=== PATIENT | female | born 1995 | race Hispanic/Latino ===

== ENCOUNTER 2020-03-03 13:47 | Emergency (ER) | payer OTHER ==
[2020-03-04 15:38] LABS: SARS-CoV-2 MS2 Positive; SARS-CoV-2 N Gene Negative; SARS-CoV-2 S Gene Negative; SARS-CoV-2 orf1ab Negative
== END 2020-03-03 14:43 | disposition home or self-care (01) ==
LOC: ERS 13:47
DX: Z20.828 Contact with and (suspected) exposure to other viral communicable diseases (principal)
CPT/HCPCS: 87635; 99283; U0003

== ENCOUNTER 2020-06-08 04:17 | Emergency (ER) | payer OTHER ==
[2020-06-08 05:02] LABS: Pregnancy Test - Urine (BHCG) Negative (Negative); Pregu Control Background? CLEAR/WHITE (CLR/WHITE); Pregu Control Bar Appear? YES (CONTROL BAR); Specific Gravity 1.015 (1.002-1.036)
[2020-06-08] MEDS ORDERED: Ondansetron PF 4 MG/2 ML Vial ONE (05:02)
[2020-06-08] MEDS ORDERED: Morphine 4 MG/ML VIAL ONE (05:02)
[2020-06-08 05:03] LABS: Bacteria/HPF None Seen HPF (None Seen); Bilirubin Negative (Negative); Blood, Urine Trace (Negative); Clarity Clear (Clear); Glucose, Urine (Dipstick) Normal (Negative); Ketone, Urine Negative (Negative); Leukocyte 25 Leu/uL (Negative); Nitrite Negative (Negative); Protein, Urine (Dipstick) Negative (Neg-Trace); RBC/HPF 0-3 HPF (0-3); Specific Gravity, Urine 1.015 (1.002-1.036); Squamous Epithelial 0-3 HPF (0-3); Urobilinogen Normal mg/dL (Less than 2)
[2020-06-08 05:13] LABS: #Basophils 0.1 thou/uL (0.0-0.2); #Eosinphils 0.1 thou/uL (0.0-0.7); #Lymphocytes 3.7 thou/uL (1.20-3.40); #Monocytes 0.8 thou/uL (0.11-0.59); #Neutrophils 6.8 thou/uL (1.40-6.50); %Basophils 0.7 % (0.0-1.0); %Eosinophils 1.1 % (0.0-10.0); %Lymphocytes 32.5 % (21.0-51.0); %Monocytes 6.5 % (0.0-10.0); %Neutrophils 59.2 % (42.0-75.0); Hemoglobin 12.8 g/dL (12.0-16.0); Mean Corpuscular HGB CONC 33.5 g/dL (32.0-36.0); Mean Corpuscular Hemoglobin 28.6 pg (27.0-31.0); Mean Corpuscular Volume 85.3 fL (78.0-98.0); Mean Platelet Volume 8.3 fL (7.4-10.4); Platelet Count 377 thou/uL (130-400); RBC Distribution Width 13.3 % (11.5-14.5); Red Blood Cell (RBC) Count 4.46 mill/uL (4.20-5.40); White Blood Cell (WBC) Count 11.5 thou/uL (4.8-10.8)
[2020-06-08 05:35] LABS: ALT (SGPT) 16 U/L (8-55); AST (SGOT) 19 U/L (5-34); Albumin 3.9 g/dL (3.5-5.0); Alkaline Phosphatase 57 U/L (40-110); Anion Gap 12 mmol/L (10-20); BUN (Urea Nitrogen) 12 mg/dL (7.0-18.7); Bilirubin, Total 0.2 mg/dL (0.2-1.2); Calc. Creatinine Clearance 0 mL/min (70-130); Calcium 8.9 mg/dL (7.8-10.44); Carbon Dioxide 21 mmol/L (22-29); Chloride 106 mmol/L (98-107); Estimated GFR-MDRD 89; Globulin 3.3 g/dL (2.4-3.5); Glucose 110 mg/dL (70-105); Lipase 24 U/L (8-78); Potassium 4.1 mmol/L (3.5-5.1); Protein, Total 7.2 g/dL (6.0-8.3); Sodium 135 mmol/L (136-145)
[2020-06-08] MEDS ORDERED: Ketorolac Tromethamine 30 MG/ML VIAL ONE (05:46)
[2020-06-08] MEDS ORDERED: Lidocaine Viscous Sol 2% 15 ml UD Cup ONE (06:27)
[2020-06-08] MEDS ORDERED: Mag-Al 1200 mg/1200 mg/30 ML UDCUP ONE (06:27)
--- NOTE | 2020-06-08 10:26 | CT ---
PRELIMINARY REPORT/[facility]/EMERGENCY AFTER HOURS PROCEDURE: EXAM: CT Abdomen and Pelvis with Intravenous Contrast CLINICAL HISTORY: Patient presents with several hours of epigastric and right upper quadrant pain. Sh zac has had nausea but no vomiting. She denies fever, change in bowel habits, and urinary symptoms. She reports no previous history of similar pain TECHNIQUE: Axial computed tomography images of the abdomen and pelvis with intravenous contrast. CONTRAST: With; ISOVUE 370, 90ML COMPARISON: None provided. FINDINGS: LUNG BASES: No basilar airspace consolidation or pleural effusion. LIVER: Unremarkable. GALLBLADDER AND BILE DUCTS: Unremarkable. No calcified stone. No ductal dilation. PANCREAS: Unremarkable. SPLEEN: Unremarkable. 2 small low density areas in the spleen of doubtful clinical significance. ADRENAL GLANDS: Unremarkable. KIDNEYS, URETERS, AND BLADDER: Unremarkable. No hydronephrosis or nephrolithiasis. No ureteral or nisha dder calculi. STOMACH AND BOWEL: No obstruction. No wall thickening. No CT evidence of colitis or acute diverticuli tis. APPENDIX: Normal appendix. PERITONEUM: No free fluid. No free air. LYMPH NODES: No lymphadenopathy. REPRODUCTIVE: 3.5 cm left ovarian cyst. VASCULATURE: No aortic aneurysm. BONES: No fracture or suspicious osseous abnormality. ABDOMINAL WALL AND SOFT TISSUES: Unremarkable. IMPRESSION: No acute intra-abdominal or pelvic abnormality. 3.5 cm left ovarian cyst best evaluated with pelvic ultrasound if and when clinically indicated. Small low density areas in the spleen, like ly an incidental finding. ELECTRONICALLY SIGNED BY: Lex Jade MD Jun 08, 2020 6:03:51 AM CDT FINAL REPORT EMERGENT AFTER HOURS CT ABDOMEN AND PELVIS PERFORMED WITH CONTRAST ENHANCEMENT: HISTORY: Epigastric and right-sided abdomen pain. FINDINGS: The lung bases are clear of infiltrates. The liver shows a suggestion of some element of fatty change. There are multiple hypodensities withi n the spleen. These cold represent small splenic cysts or possibly hemangiomas. Pancreas and gallbl adder regions appear unremarkable. Right and left adrenal glands and right and left kidneys are normal in size. There is no significant periaortic or mesenteric adenopathy. CT OF PELVIS PERFORMED WITH CONTRAST ENHANCEMENT: The appendix is normal. No adenopathy. A left ovarian cyst measuring approximately 3.2 cm is noted. IMPRESSION: 1. Normal appendix. 2. An approximately 3.2 cm left ovarian cyst. 3. This report is in agreement with the temporary report issued by [facility]. POS: OFF
[2020-06-08] MEDS ORDERED: Iopamidol 370 76% 100 ML VIAL ONE (13:57)
== END 2020-06-08 06:46 | disposition home or self-care (01) ==
LOC: ERS 04:17
DX: R10.13 Epigastric pain (principal); R10.11 Right upper quadrant pain; F32.9 Major depressive disorder, single episode, unspecified; R11.0 Nausea
CPT/HCPCS: 74177; 80053; 81003; 81015; 81025; 83690; 85025; 96374; 96375; J1885; J2270; J2405; Q9967